=== PATIENT | female | born 1980 | race Caucasian/White ===

== ENCOUNTER 2024-10-23 08:19 | Outpatient (AMB) | payer OTHER, SELFPAY ==
--- NOTE | 2024-10-23 08:22 | AM.OFFWIN_ITS ---
Intake Vital Signs 10/23/24 08:24 Height 5 ft 4 in Weight 161 lb BMI 27.6 BP 116/82 Blood Pressure Location Lt brachial Position Sitting Respiration 12 Pulse 60 Pulse Source Pulse Oximeter Temp 98.2 F Temp Source Oral Pulse Oximetry (%) 99 Oxygen Delivery Method Room Air Intake Visit Reasons: congestion in nose/swollen knee left Intake Note: Congestion in nose for two months. Swollen knee for about a week, pins in needles left arm. Has been doing more strenous activities the past 2 weeks. Patient Tobacco Use Status: Former Tobacco user Allergies No Known Allergies Allergy (Verified 10/23/24 08:33) Medication List - Last Reconciled 10/23/24 by Gloria Enamorado, PANEL CUTTER- ashwagandha root extract mg PO cholecalciferol (vitamin D3) 250 mcg PO DAILY chromium picolinate 200 mcg PO DAILY metformin 250 mg (1/2 x 500 mg) PO BID 90 days multivitamin 1 tab PO DAILY omega 2-azn-vlg-fish oil 1,200 (144-216) mg (Fish Oil) caps PO Do you need a note to return to daycare/school/sports/work: No HPI HPI Comments History of Present Illness Details History of Present Illness - The patient is a 44-year-old female pr esenting with chronic nasal congestion persisting for the last two months following a cold in mid-August. Using Afrin, radha pot and saline to help. Denies fever, chills, sinus pain. Does not feel like a sinus infection. Denies cough. - Swelling in Left knee, reported over t he past week, with a history of hearing a snapping sound in the left knee while descending stairs prior to the onset of swelling. The patient has been active in weight lifting for the last three months & runs regularly. Stopped running and doing lower body to allow the left knee to improve along w/ ice,nsaids, compression and elevation w/o relief. - Left arm paresthesia has been experien cami, presenting as pins and needles following upper body exercises, involving muscles from the elbow down to the fingers. Denies loss of function. Exam awake alert NAD PERRLA TM intact, congested bilat Nares clear, turbinates pale and edematous R>L, no sinus tenderness, + congestion No PND DESAI x 4, left upper arm and lower leg neurovasc intact L knee pain over anterior aspect and medial aspect w/ palpation, + crepitus, no erythema or warmth. Very mild prepatellar swelling. Normal WB. Normal strength. Left arm: FROM. Normal strengh. reports replicated sensation into lower arm w/ palpation over medial and lateral epicondyle & into upper arm w/ palpation over deltoid bursa. No erythema, warmth. Trace edema LLE, + varicose veins Discussion Notes During the discussion, I reviewed with the patient that chronic nasal congestion appears secondary to prolonged use of Afrin, which possibly caused a rebound effect. I advised the patient to discontinue Afrin and introduced her to Flonase (a nasal steroid) and ipratropium (a nasal drying agent) for managing congestion, noting the mechanics of how these would assist in reducing inflammation and encouraging drainage. We explored the options for her L knee swelling. I suggested obtaining an X-ray of the left knee for further evaluation. For left arm paresthesia, likely arising from muscle overuse or impingement, I recommended rest and avoiding exacerbation activities. Explained potential benefits of physical therapy or manipulative medicine as alternatives if symptoms warrant. Scheduled an x-ray at a local office with quicker results and discussed possible follow-up with orthopedic consultation depending on x-ray results. Could also consider treatment of varicose veins but she declines @ this time. No immediate indications for emergency follow-up were observed, and patient consented to proposed diagnostic approach and management plan. Assessment and Plan 1. Chronic Nasal Congestion: I advised d iscontinuing Afrin and starting Flonase and ipratropium to address the chronic nasal congestion attributed to a possible rebound effect from prolonged Afrin use. 2. L Knee Swelling & pain: The plan invo lved obtaining an X-ray to evaluate the knee status, considering potential fluid presence from recent activity. I discussed ongoing application of rest and monitoring. 3. Left Arm Paresthesia: The recommendat ion involved avoiding aggravating activities, with advice on considering physical therapy if symptoms persist. Patient Instructions - Discontinue using Afrin nasal spray. - Begin using Flonase and ipratropium as per prescription instructions for nasal congestion. - Apply ice, use compression, elevate th e affected knee, and limit activities that exacerbate knee swelling. - Avoid exercise activities that involve extensive arm movements or exacerbate the pins and needles sensation. - Arrange for an X-ray of the left knee; follow up on results via patient portal. - Contact the office if symptoms worsen or new symptoms arise. Consent I discussed the plan to discontinue Afrin and use Flonase and ipratropium, explaining the benefits in reducing inflammation and congestion. Discussed potential X-rays for knee assessment emphasizing the benefits in ruling out nikhil r pathology. The patient understood the importance of avoiding exercises aggravating her arm symptoms and consented to rest as a therapeutic measure. Answered patient concerns and questions, and she consented to the proposed medical management and evaluation approach. Patient was informed and verbally consented to the use of an ambient scribe for clinic note documentation during this visit. Total time spent caring for the patient today was 30 minutes. This includes time spent before the visit reviewing the chart, time spent during the visit, and time spent after the visit on documentation, reviewing laboratory results, diagnostic imaging, medications, performing a medically necessary evaluation, counseling on diagnoses, care coordination, ordering appropriate tests, ordering appropriate medications, review of tests performed by other providers, reporting test results with the patient, communication with other healthcare providers. [facility] Medical History (Updated 10/23/24 @ 08:53 by Gloria Enamorado [facility]) Encounter for removal of skin lesion Family History (System 10/10/24 @ 11:28 by Karuna Pack) Mother HTN (hypertension) Hypercholesteremia Father HTN (hypertension) Diabetes Maternal Grandmother HTN (hypertension) Stomach cancer Colon cancer Paternal Aunt Diabetes Paternal Grandfather Diabetes Paternal Grandfather Stomach cancer Paternal Grandmother Uterine cancer Social History (System 10/10/24 @ 11:28 by Karuna Pack) Housing: House Patient Tobacco Use Status: Former Tobacco user Tobacco use type: Cigarette Years Smoked: 10 years e-Cigarette/Vaping Use: Never Used service: No Current occupational status: employed Current occupation: [employer] Current occupational exposures/hazards: No Cognitive needs: No Hearing needs: No Vision needs: No Assessment & Plan Assessment & Plan (1) Rhinitis medicamentosa: Code(s): J31.0 - Chronic rhinitis; T48.5X5A - Adverse effect of other uzeb-nxwcip-lwed drugs, initial encounter (2) Pain and swelling of left knee: Code(s): M25.562 - Pain in left knee; M25.462 - Effusion, left knee (3) Arm paresthesia, left: Code(s): R20.2 - Paresthesia of skin (4) Varicose veins of both legs with edema: Code(s): I83.893 - Varicose veins of bilateral lower extremities with other complications Plan . Orders: Orders XR knee LT 4V Today M25.462 - Effusion, left knee, M25.562 - Pain in left knee Medications: New fluticasone propionate 50 mcg/actuation (Flonase Allergy Relief) administer into each nostril 1 spray intranasal BID 16 grams 0RF ipratropium bromide administer into each nostril 2 sprays intranasal BID 30 mL 0RF Coding Level of Care Code Est Pt Level 4 (36561) Diagnoses Rhinitis medicamentosa J31.0; T48.5X5A Pain and swelling of left knee M25.562; M25.462 Arm paresthesia, left R20.2 Varicose veins of both legs with edema I83.893
[2024-10-23 08:24] VITALS: BP 116/82; PULSE 60; RESP 12; TEMP 36.8; O2SAT 99; BMI 27.6
== END 2024-10-23 08:47 | disposition home or self-care (01) ==
PROVIDERS: PCP Family Medicine; Visit Provider Nurse Practitioner Family
DX: J31.0 Chronic rhinitis (principal); T48.5X5A Adverse effect of other anti-common-cold drugs, initial encounter; M25.562 Pain in left knee; M25.462 Effusion, left knee; R20.2 Paresthesia of skin; I83.893 Varicose veins of bilateral lower extremities with other complications

== ENCOUNTER 2024-11-01 09:09 | Outpatient (REF) | payer OTHER, SELFPAY ==
--- NOTE | ~2024-11-01 | XR_ITS ---
EXAMINATION: XR KNEE 4 OR MORE VIEWS LEFT HISTORY: M25.562 - Pain in left knee COMPARISON: There are no prior studies available for comparison. FINDINGS: Four views of the left knee are submitted. Osseous mineralization is normal. There is no fracture or dislocation. There is mild to moderate osteoarthritis of all 3 compartments, with joint space narrowing and osteophyte formation. There is a small joint effusion. XR/XR knee LT 4V IMPRESSION: Small joint effusion. Mild to moderate tricompartmental osteoarthritis. Electronically signed by: Ash Manzo MD 11/03/2024 07:09 AM EDT
== END 2024-11-01 09:10 | disposition home or self-care (01) ==
LOC: HO.HMGCX 09:09
PROVIDERS: PCP Family Medicine; Visit Provider Nurse Practitioner Family
DX: M25.562 Pain in left knee (principal); M25.462 Effusion, left knee
CPT/HCPCS: 73564

== ENCOUNTER → 2024-11-01 09:13 | Outpatient (BNV) | payer OTHER, SELFPAY | PROVIDERS: PCP Family Medicine; Visit Provider Radiology Diagnostic Radiology | DX: M25.562 Pain in left knee (principal) | CPT/HCPCS: 73564 ==

== ENCOUNTER 2024-11-11 14:49 | Outpatient (AMB) | payer OTHER, SELFPAY ==
--- NOTE | 2024-11-11 15:00 | A.OFFPC_ITS ---
Vital Signs 11/11/24 15:04 Height 5 ft 4 in Weight 179 lb 6 oz BMI 30.8 BP 110/60 Blood Pressure Location Rt brachial Position Sitting Respiration 12 Pulse 57 Pulse Source Pulse Oximeter Temp 98.9 F Temp Source Oral Pulse Oximetry (%) 99 Oxygen Delivery Method Room Air Intake Visit Reasons: medication reactions Intake Note: patient is scheduled for medication review for metformin Spike Machine Feeder Required: No Allergies No Known Allergies Allergy (Verified 11/11/24 15:02) Tobacco use date assessed: 01/08/24 Dental Screening Dental Screen Date: 11/16/23 HPI medication reactions HPI Details 44 y/o female presents today to talk abo ut her metformin. She is on metformin 250mg b.i.d. Hx of prediabetes. A1c today 11/11/24 is 6.7%. She notes she had been on mounjaro for 6 months which she notes had worked well. [facility] Medical History (Updated 11/11/24 @ 15:19 by Merrick Tsai) Encounter for removal of skin lesion Family History (System 10/10/24 @ 11:28 by Karuna Pack) Mother HTN (hypertension) Hypercholesteremia Father HTN (hypertension) Diabetes Maternal Grandmother HTN (hypertension) Stomach cancer Colon cancer Paternal Aunt Diabetes Paternal Grandfather Diabetes Paternal Grandfather Stomach cancer Paternal Grandmother Uterine cancer Social History (System 10/10/24 @ 11:28 by Karuna Pack) Housing: House Patient Tobacco Use Status: Former Tobacco user Tobacco use type: Cigarette Years Smoked: 10 years e-Cigarette/Vaping Use: Never Used service: No Current occupational status: employed Current occupation: [employer] Current occupational exposures/hazards: No Cognitive needs: No Hearing needs: No Vision needs: No Questionnaire PHQ-9 Over the last 2 weeks, how often have you been bothered by any of the following problems? 1. Little interest or pleasure in doing things: several days 2. Feeling down, depressed, or hopeless: several days 3. Trouble falling or staying asleep, or sleeping too much: not at all 4. Feeling tired or having little energy: several days 5. Poor appetite or overeating: several days 6. Feeling bad about yourself - or that you are a failure or have let yourself or your family down: not at all 7. Trouble concentrating on things, such as reading the newspaper or watching television: several days 8. Moving or speaking so slowly that other people could have noticed. Or the opposite - being so fidgety or restless that you have been moving around a lot more than usual: not at all 9. Thoughts that you would be better off or of hurting yourself in some way: not at all Total score: 5 Source: Developed by Drs. Ash Crowell, Sherin Keller, Dewayne Palacio and colleagues, with an educational di from [employer]. Thrive Questionnaire Date Thrive assessed: 11/16/23 I am a: Patient What is your living situation today?: I have a steady place to live Within the past 12 months, did the food you bought not last and you didn't have the money to get more?: Never true Within the past 12 months, did you worry whether your food would run out before you got money to buy more?: Never true Do you have trouble paying for medicines?: No Do you have trouble getting transportation to medical appointments?: Yes Do you have trouble paying your heating and electricity bill?: No Do you have trouble taking care of your child, family member or friend?: No Do you have trouble with day-to-day activities such as bathing, preparing meals, shopping, managing finances, etc.?: No Are you currently unemployed and looking for a job?: Yes Are you interested in more education?: No Please select the resources that you would like help with: None Currently or been in a relationship where the following occur: No concerns reported THRIVE Score: 1 AUDIT C Alcohol Use Questionnaire (AUDIT-C) 1. How often do you have a drink containing alcohol?: Monthly or less 2. How many drinks containing alcohol do you have on a typical day when you are drinking?: 1 or 2 3. How often do you have six or more drinks on one occasion?: Never Total Score: 1 JACOB-7 AMB Questionnaire JACOB-7 Date JACOB - 7 assessed: 11/16/23 Feeling nervous, anxious, or on edge: 2 = More than half the days Not being able to stop or control worryin = Several days Worrying too much about different things: 1 = Several days Trouble relaxin = Several days Being so restless that it is hard to sit still: 0 = Not at all Becoming easily annoyed or irritable: 3 = Nearly every day Feeling afraid as if something awful might happen: 0 = Not at all Total JACOB-7 score (0-4 normal; 5-9 mild; 10-14 moderate; 15-21 severe): 8 Source: Developed by Drs. Ash Crowell, Sherin Keller, Dewayne Palacio and colleagues, with an educational di from [employer]. Review of Systems Const Denies chills, Denies fatigue, Denies fever(s), Denies headache(s) and Denies weakness ENT Denies dizziness and Denies headache(s) Card Denies dyspnea Resp Denies cough, Denies dyspnea, Denies wheezing and Denies other (shortness of breath) Musc Denies numbness and Denies tingling Neuro Denies dizziness, Denies headache(s), Denies numbness, Denies tingling and Denies weakness Psych Denies anxiety and Denies depression Endo Denies fatigue Aller/Immun Denies wheezing Physical exam (Primary Care) Vital Signs: Last Vital Signs Temp 98.9 F 11/11/24 15:04 Pulse 57 11/11/24 15:04 Resp 12 11/11/24 15:04 BP 110/60 11/11/24 15:04 Pulse Ox 99 11/11/24 15:04 Oxygen Delivery Method Room Air 11/11/24 15:04 BMI result Body Mass Index 30.8 Tobacco/Smoking Status: Tobacco use Status Tobacco use date assessed 01/08/24 11/11/24 15:07 Patient Tobacco Use Status Former Tobacco user 11/11/24 15:07 Tobacco use type Cigarette 11/11/24 15:07 e-Cigarette/Vaping Use Never Used 11/11/24 15:07 PHQ-9: PHQ-9 Score PHQ-9: Total score 5 11/11/24 15:09 Thrive Assessment: Date of Thrive Assessment Date Thrive assessed 11/16/23 11/11/24 15:07 Currently or been in a relationship where the following occur: No concerns reported Const General: well developed; No acute distress Nutritional Appearance: well nourished Orientation/consciousness: patient oriented x3 HENMT Head: Yes normocephalic and Yes atraumatic Eyes General: appearance normal, both eyes and all related structures Pupils: Equal, round and reactive pupils present EOM: EOMs intact bilaterally Resp Effort & Inspection: normal respiratory effort Neuro General: patient oriented x3 and gait normal Cranial nerves: Yes Equal, round and reactive pupils present Psych Affect: normal affect Coding Level of Care Code Est Pt Level 4 (39924) Diagnoses Diabetes E11.9 Heart murmur R01.1 Tricompartment osteoarthritis of left knee M17.12 Assessment & Plan Assessment & Plan (1) Diabetes: Code(s): E11.9 - Type 2 diabetes mellitus without complications Category: Medical Plan: A1c?has?climbed?to?6.7%?despite?using?metformin. Diabetes?range Will?send?a?script?for?Susana. Recommending?a?goal?of?less?than?6.5% She?has?an?appointment?for?physical?in?January?him?to?follow- up?to?see?how?she?is?doing?with?that (2) Heart murmur: Code(s): R01.1 - Cardiac murmur, unspecified Category: Medical Plan: Echocardiogram?shows?some?mitral?regurgitation?and?also?mild?left?atrial?enlarge ment. Keep?blood?pressure?is?well?controlled. Will?get 2 yr f/u ?echocardiogram (3) Tricompartment osteoarthritis of left knee: Code(s): M17.12 - Unilateral primary osteoarthritis, left knee Category: Medical Plan: Left?knee?pain?and?x-ray?shows?osteoarthritis?with?mild?effusion Patient?has?an?appointment?with?Ortho Orders: Orders AMB Hemoglobin A1c Today R73.03 - Prediabetes
[2024-11-11 15:04] VITALS: BP 110/60; PULSE 57; RESP 12; TEMP 37.2; O2SAT 99; BMI 30.8
== END 2024-11-11 15:31 | disposition home or self-care (01) ==
LOC: HO.HMCFM 14:50
PROVIDERS: PCP Family Medicine; Visit Provider Family Medicine
DX: E11.9 Type 2 diabetes mellitus without complications (principal); R01.1 Cardiac murmur, unspecified; M17.12 Unilateral primary osteoarthritis, left knee

== ENCOUNTER → 2024-11-11 14:49 | Outpatient (BNVA) | payer OTHER, SELFPAY | PROVIDERS: PCP Family Medicine; Visit Provider Family Medicine | DX: E11.9 Type 2 diabetes mellitus without complications (principal); R01.1 Cardiac murmur, unspecified; M17.12 Unilateral primary osteoarthritis, left knee | CPT/HCPCS: 83036; 96127 ==

== ENCOUNTER 2024-12-18 08:55 | Outpatient (AMB) | payer OTHER, SELFPAY ==
--- NOTE | 2024-12-18 08:56 | A.OFFVIS_ITS ---
Vital Signs 12/18/24 08:57 Height 5 ft 4 in Weight 167 lb 8.821 oz BMI 28.8 BP 132/79 Blood Pressure Location Lt brachial Position Sitting Pulse 67 Intake Visit Reasons: colo screening Intake Note: Chiara presents in the office as a colonoscopy screening. CC: She states that she is just here today for a screening - she has never had one ! Workers Compensation Administrator Required: No Allergies No Known Allergies Allergy (Verified 12/18/24 09:00) HPI HPI colo screening: Details: 44-year-old female here for preprocedural meeting to discuss a screening colonoscopy. She is referred by Ariel Meier. PMX Diabetes High cholesterol Heart murmur Abnormal uterine bleeding Varicose veins Osteoarthritis of the knees * SURGICAL HISTORY PItuitary surgery * ALLERGIES: NKDA * MEDITECH LABS: none todd 03/2024 TODAY'S VISIT This is her first colonoscopy. She denies any bowel or upper GI problems. She is naive to anesthesia and sedation. No respiratory or cardiac problems. No ID problems. Her maternal gradmother had CRC in her 90's and her mother had polyps. [facility] Medical History Encounter for removal of skin lesion Family History Mother HTN (hypertension) Hypercholesteremia Father HTN (hypertension) Diabetes Maternal Grandmother HTN (hypertension) Stomach cancer Colon cancer Paternal Aunt Diabetes Paternal Grandfather Diabetes Paternal Grandfather Stomach cancer Paternal Grandmother Uterine cancer Social History Housing: House Patient Tobacco Use Status: Former Tobacco user Tobacco use type: Cigarette Years Smoked: 10 years e-Cigarette/Vaping Use: Never Used service: No Current occupational status: employed Current occupation: [employer] Current occupational exposures/hazards: No Cognitive needs: No Hearing needs: No Vision needs: No Review of Systems Const Denies fatigue, Denies fever(s), Denies night sweats, Denies poor appetite and Denies weight loss Eyes Details: glasses Reports requires corrective lenses ENT Reports Normal hearing present, Denies dental pain, Denies dysphagia, Denies hearing loss, Denies mouth pain, Denies odynophagia, Denies throat swelling, Denies tongue swelling and Reports other (Dentition adequate) Card Reports no additional complaints Resp Reports no additional complaints GI Details: Denies abdominal pain, Denies melena, Denies bloating, Denies hematochezia, Denies constipation, Denies GI cramping, Denies dysphagia, Denies excessive flatus, Denies early satiety, Denies heartburn, Denies diarrhea, Denies nausea, Denies odynophagia, Denies vomiting and Denies hematemesis Skin/Breast Denies pruritus, Denies lesions, Denies rash and Denies jaundice Neuro Reports Normal hearing present and Denies Abnormal speech present Endo Denies fatigue Aller/Immun Denies throat swelling and Denies tongue swelling Physical Exam Vital Signs: Last Vital Signs Pulse 67 12/18/24 08:57 BP 132/79 12/18/24 08:57 BMI result Body Mass Index 28.8 Const General: cooperative, no acute distress, well developed and well groomed Nutritional Appearance: average body habitus and well nourished Orientation/consciousness: oriented to person, oriented to place and oriented to time Limitations: No language barrier HEENT Head: Yes normocephalic and Yes atraumatic Eyes General: appearance normal, both eyes and all related structures Pupils: Equal, round and reactive pupils present Neck Neck: Yes normal visual inspection and Yes no lymphadenopathy Thyroid: Thyroid normal Resp Effort & Inspection: normal respiratory effort and able to speak in complete sentences Auscultation: clear to auscultation bilaterally Cardio Rate: regular rate Rhythm: regular rhythm Heart sounds: Normal, physiologic split S2 sound present Peripheral pulses: radial pulses present and posterior tibial pulses present GI Inspection: No distended and No Abdominal panniculus present Palpation (GI): Soft to palpation, nontender, no guarding, not rigid and No hepatosplenomegaly present Percussion: Yes normal to percussion Auscultation: normal bowel sounds Rectal Exam - Female: deferred Skin General skin exam: no rashes or lesions noted, turgor normal, skin not dry, no jaundice, No spider nevi and no striae Rashes: no rashes Nails: normal Neuro General: oriented to person, oriented to place and oriented to time Cranial nerves: Yes Equal, round and reactive pupils present and Yes Normal hearing present Speech: No Abnormal speech present Extrem General: Yes normal to inspection, No clubbing, No cyanosis and No edema Psych Appearance: grossly normal and well kempt Mental Status: mental status grossly normal Speech and movement: Normal speech and movement present Affect: normal affect Attitude: cooperative Thought process: Normal thought process present and not confabulating Thought content: Normal thought content present Insight: Good insight present (Psych) Judgement: Good judgement present (Psych) Assessment & Plan Assessment & Plan (1) Pre-op examination: Code(s): Z01.818 - Encounter for other preprocedural examination Category: Medical Plan This is her first colonoscopy. She denies any bowel or upper GI problems. She is naive to anesthesia and sedation. No respiratory or cardiac problems. No ID problems. Her maternal gradmother had CRC in her 90's and her mother had polyps. Orders: Orders Complete Blood Count Auto Diff Today Z01.818 - Encounter for other preprocedural examination Colonoscopy - GI Use Only Today Z01.818 - Encounter for other preprocedural examination Comprehensive Met. Panel Today Z01.818 - Encounter for other preprocedural examination Medications: New bisacodyl (Dulcolax (bisacodyl)) 10 mg (2 x 5 mg) PO BEDTIME 2 days 4 tabs 0RF peg 3350-electrolytes 236-22.74-6.74 -5.86 gram (Golytely) until fecal effluent is clear; do not exceed a total volume of 2,000 mL 240 mL PO Q10M 1 day 4,000 mL 0RF Z12.11 - Encounter for screening for malignant neoplasm of colon Coding Level of Care Code New Pt Level 3 (80180) Diagnoses Pre-op examination Z01.818
[2024-12-18 08:57] VITALS: BP 132/79; PULSE 67; BMI 28.8
== END 2024-12-18 09:30 | disposition home or self-care (01) ==
LOC: HO.HGI 08:55
PROVIDERS: PCP Family Medicine; Visit Provider Nurse Practitioner
DX: Z01.818 Encounter for other preprocedural examination (principal); Z12.11 Encounter for screening for malignant neoplasm of colon
CPT/HCPCS: 99202

== ENCOUNTER → 2024-12-18 08:55 | Outpatient (BNVA) | payer OTHER, SELFPAY | PROVIDERS: PCP Family Medicine; Visit Provider Nurse Practitioner ==

== ENCOUNTER 2024-12-25 09:26 | Outpatient (REF) | payer OTHER, SELFPAY ==
--- NOTE | ~2024-12-25 | XR_ITS ---
EXAMINATION: XR KNEE, LEFT CLINICAL INFORMATION: M25.569 - Pain in unspecified knee COMPARISON: Left knee radiographs 11/01/2024. TECHNIQUE: AP view bilateral knees standing, patellofemoral view left knee. FINDINGS: RIGHT KNEE: No fracture or bone lesion. Normal alignment. Mild to moderate medial and mild lateral compartment osteoarthritis. Mild spurring of the tibial spines. Normal soft tissues. LEFT KNEE: No fracture, dislocation, or suspicious bone lesion. Mild to moderate medial compartment osteoarthrosis with marginal osteophytic spurs and mild joint space narrowing. Moderate changes in the patellofemoral compartment. Mild changes in the lateral compartment. Mild spurring of the tibial spines. Normal soft tissues. XR/XR knee LT 2V IMPRESSION: 1. Tricompartmental osteoarthrosis of the left knee, moderate in the patellofemoral compartment, and mild to moderate in the medial compartment. Electronically signed by: Chucho Tierney MD 12/25/2024 10:15 AM EDT
[2024-12-25 10:37] LABS: MANUAL DIFF FLAG NO
[2024-12-25 11:21] LABS: Basophils Absolute Auto 0.1 X10*3/uL (0.0-0.2); Basophils Percent Auto 0.8 % (0-2); Eosinophils Absolute Auto 0.2 X10*3/uL (0.0-0.4); Eosinophils Percent Auto 1.7 % (0-4); Hematocrit 43.3 % (37.0-47.0); Hemoglobin 14.9 g/dl (12.0-16.0); Imm Gran Abs Auto 0.03 X10*3/uL (0.00-0.03); Imm Gran Pct Auto 0.3 % (0.0-0.4); Lymphocytes Absolute Auto 3.1 X10*3/uL (1.2-4.9); Lymphocytes Percent Auto 35.1 % (20-40); Mean Corpuscular HGB Conc 34.4 g/dl (31.0-35.0); Mean Corpuscular Hemoglobin 29.3 pg (27.0-33.0); Mean Corpuscular Volume 85.1 fL (80.0-98.0); Mean Platelet Volume 9.8 fL (9.4-12.3); Monocytes Absolute Auto 0.7 X10*3/uL (0.1-1.2); Monocytes Percent Auto 7.3 % (2-11); Neutrophils Absolute Auto 4.9 x10*3/uL (2.0-8.3); Neutrophils Percent Auto 54.8 % (45-73); Platelet Count 289 X10*3/uL (160-400); Red Blood Count 5.09 X10*6/uL (4.20-5.50); Red Cell Distribution Width 13.1 % (11.0-16.0); White Blood Count 8.9 X10*3/uL (4.8-10.8)
[2024-12-25 11:35] LABS: HCG Quantitative < 2 mIU/mL
[2024-12-25 12:13] LABS: Appearance Urine Cloudy; Color Urine Yellow; Glucose Urine UA Negative (Negative); Leukocyte Esterase Urine Trace (Negative); Nitrite Urine Negative (Negative); Specific Gravity - Urine <= 1.005 (1.005-1.025); UMIC TRIGGER UA YES; Urine Blood Negative (Negative); Urine Ketones Negative (Negative); Urine Protein Negative (Neg-Trace)
[2024-12-25 12:19] LABS: Bacteria Urine 2+ (None Seen); Hyaline Casts Urine 0-2 /LPF (0-2); RBC Urine 0-2 /HPF (0-2); WBC Urine 0-5 /HPF (0-5)
[2024-12-25 12:21] LABS: Alanine Aminotransferase 19 U/L (0-31); Albumin Level 4.8 g/dL (3.5-5.0); Alkaline Phosphatase 58 U/L (39-117); Anion Gap 10 (12-20); Aspartate Amino Transferase 22 U/L (5-31); Bilirubin Total 0.4 mg/dL (0.0-1.0); Blood Urea Nitrogen 9 mg/dL (9-16); Calcium 9.8 mg/dL (8.4-10.2); Carbon Dioxide 28 mmol/L (22-29); Chloride 108 mmol/L (96-108); Estimated Glomerular Filt Rate > 60; Glucose Random 82 mg/dL (60-115); Potassium 4.3 mmol/L (3.3-5.1); Sodium 142 mmol/L (135-145); Total Protein 7.5 g/dL (6.5-8.0)
== END 2024-12-25 09:27 | disposition home or self-care (01) ==
LOC: HO.HOSX 09:26
PROVIDERS: Nurse Practitioner; Obstetrics & Gynecology; PCP Family Medicine; Visit Provider Physician Assistant
DX: M17.12 Unilateral primary osteoarthritis, left knee (principal); Z01.818 Encounter for other preprocedural examination; O02.1 Missed abortion
CPT/HCPCS: 36415; 73560; 80053; 81001; 81003; 84702; 85025

== ENCOUNTER 2024-12-25 09:48 | Outpatient (AMB) | payer OTHER, SELFPAY ==
[2024-12-25 09:51] VITALS: BMI 28.7
--- NOTE | 2024-12-25 09:51 | A.OFFVIS_ITS ---
Vital Signs 12/25/24 09:51 Height 5 ft 4 in Weight 167 lb BMI 28.7 Intake Visit Reasons: [employer]- left knee OA Intake Note: Chiara is a 44 year old female who presents today for a new patient visit with complaints of left knee pain. Patient reports that she has had ongoing pain for quite some time now but worsened in October of this year. In October she was lifting weights and after working out she was going up the stairs and she felt a pop - since feeling this pop she has had increased pain. She utilized ice, elevation and NSAID. She has not had any physical therapy or injections - but she has been dong exercises at home. Allergies No Known Allergies Allergy (Verified 12/25/24 10:04) HPI HPI [employer]- left knee OA: Details: Chiara is a 44 year old female who presents today for a new patient visit with complaints of left knee pain. Patient reports that she has had ongoing pain for quite some time now but worsened in October of this year. In October she was lifting weights and after working out she was going up the stairs and she felt a pop - since feeling this pop she has had increased pain. She utilized ice, elevation and NSAIDs. She has not had any physical therapy or injections - but she has been dong exercises at home. She enjoys running and think she probably irritated her left knee after engaging in a new workout regimen including squats and exercises to increase lower extremity strength. [facility] Medical History Encounter for removal of skin lesion Family History Mother HTN (hypertension) Hypercholesteremia Father HTN (hypertension) Diabetes Maternal Grandmother HTN (hypertension) Stomach cancer Colon cancer Paternal Aunt Diabetes Paternal Grandfather Diabetes Paternal Grandfather Stomach cancer Paternal Grandmother Uterine cancer Social History Housing: House Patient Tobacco Use Status: Former Tobacco user Tobacco use type: Cigarette Years Smoked: 10 years e-Cigarette/Vaping Use: Never Used service: No Current occupational status: employed Current occupation: [employer] Current occupational exposures/hazards: No Cognitive needs: No Hearing needs: No Vision needs: No Physical Exam Vital Signs: BMI result Body Mass Index 28.7 Extrem Other: Full range of motion left knee. Positive patellar tilt him significant retropatellar discomfort and crepitus with patellar grind. She has a trace effusion as well. She walks without antalgia. Her alignment is normal. Results Reviewed Results Reviewed: I personally reviewed relevant radiographs. [id number] tibiofemoral arthritis. Severe patellofemoral arthritis Assessment & Plan Assessment & Plan (1) Patellofemoral arthritis of left knee: Code(s): M17.12 - Unilateral primary osteoarthritis, left knee Category: Medical Plan: This is a 44-year-old woman with patellofemoral osteoarthritis. It is significant on radiographs. She likes to run in his very active. I had a long discussion with her regarding the mechanics of the patellofemoral joint. I recommend a referral to physical therapy. She may continue to use NSAIDs and should continue to workout but I would avoid exacerbating activities. If the swelling resumes over return for potential aspiration/injections. Orders: Orders PT Evaluation and Treatment 12/25/24 Nahun Prieto MD M17.12 - Unilateral prim suzi osteoarthritis, left knee XR knee LT 2V 12/25/24 Jeanette Lee PA-C M25.569 - Pain in unspecified knee Coding Level of Care Code New Pt Level 3 (69799) Diagnoses Patellofemoral arthritis of left knee M17.12
== END 2024-12-25 10:30 | disposition home or self-care (01) ==
LOC: HO.HOS 09:48
PROVIDERS: PCP Family Medicine; Visit Provider Physician Assistant
DX: M17.12 Unilateral primary osteoarthritis, left knee (principal)
CPT/HCPCS: 99203

== ENCOUNTER → 2024-12-25 09:50 | Outpatient (BNV) | payer OTHER, SELFPAY | PROVIDERS: PCP Family Medicine; Visit Provider Radiology Diagnostic Radiology | DX: M17.12 Unilateral primary osteoarthritis, left knee (principal) | CPT/HCPCS: 73560 ==

== ENCOUNTER 2025-01-19 13:02 | Outpatient (REF) | payer OTHER, SELFPAY ==
--- NOTE | ~2025-01-19 | US_ITS ---
EXAMINATION: US PELVIS CLINICAL INFORMATION: Uterine fibroid COMPARISON: April 21, 2024. TECHNIQUE: Ultrasound of the pelvis is performed using both transabdominal and transvaginal transducers along with Doppler. Transvaginal imaging is performed due to inadequate visualization transabdominally. FINDINGS: Uterus: The uterus is anteversion flexion and measures 9 x 7 x 6 cm. Volume: 196 cc. The double wall endometrial thickness is not identified. There is an intrauterine contraceptive device noted fully evaluated... There is a 4.2 x 3.8 x 4.0 cm heterogeneous soft tissue lesion centered in the fundus. There is a 4.8 x 3.7 x 4.9 cm heterogeneous soft tissue lesion likely subserosal right lateral body/cervix junction. Adnexa: Both ovaries are visualized. There is normal color flow to the adnexa. There is no ovarian torsion. There is no pelvic ascites or fluid collection. . Right ovary measures 3 x 1 x 2 cm. Volume: 4 cc. Left ovary measures 4 x 2 x 3 cm. Volume: 19 cc. 1.9 cm dominant follicle. US/US pelvic and transvaginal IMPRESSION: 2 uterine fibroids. No ovarian torsion. Unable to evaluate the intrauterine contraceptive device. Electronically signed by: Jorge Betancourt MD 01/19/2025 01:55 PM EDT
== END 2025-01-19 13:03 | disposition home or self-care (01) ==
LOC: HO.US 13:02
PROVIDERS: PCP Family Medicine; Visit Provider Obstetrics & Gynecology
DX: D25.9 Leiomyoma of uterus, unspecified (principal)
CPT/HCPCS: 76830; 76856

== ENCOUNTER → 2025-01-19 13:04 | Outpatient (BNV) | payer OTHER, SELFPAY | PROVIDERS: PCP Family Medicine; Visit Provider Radiology Diagnostic Radiology | DX: D25.9 Leiomyoma of uterus, unspecified (principal) | CPT/HCPCS: 76830; 76856 ==

== ENCOUNTER 2025-02-09 08:35 | Outpatient (AMB) | payer OTHER, SELFPAY ==
--- NOTE | 2025-02-09 08:40 | A.OFFVIS_ITS ---
Vital Signs 02/09/25 08:41 Height 5 ft 4 in Weight 167 lb BMI 28.7 Intake Visit Reasons: Ultrasound follow up Allergies No Known Allergies Allergy (Verified 12/25/24 10:04) HPI Comments Details: Presenting for follow-up ultrasound regarding uterine myoma seen on previous pelvic ultrasound. The patient is doing well with no complaints no abnormal uterine bleeding, minimal pelvic pressure or pain. The patient is complaining of hot flash with vaginal dryness. On Mirena IUD Pelvic ultrasound done recently showed the following: Uterus: The uterus is anteversion flexion and measures 9 x 7 x 6 cm. Volume: 196 cc. The double wall endometrial thickness is not identified. There is an intrauterine contraceptive device noted fully evaluated... There is a 4.2 x 3.8 x 4.0 cm heterogeneous soft tissue lesion centered in the fundus. There is a 4.8 x 3.7 x 4.9 cm heterogeneous soft tissue lesion likely subserosal right lateral body/cervix junction. Adnexa: Both ovaries are visualized. There is normal color flow to the adnexa. There is no ovarian torsion. There is no pelvic ascites or fluid collection. . Right ovary measures 3 x 1 x 2 cm. Volume: 4 cc. Left ovary measures 4 x 2 x 3 cm. Volume: 19 cc. 1.9 cm dominant follicle. 04/21 pelvic ultrasound showed the following: The uterus is smooth in contour and has normal myometrial echogenicity. Right subserosal 4.6 cm fibroid. Right uterine body intramural 3.5 cm fibroid. [facility] Medical History Encounter for removal of skin lesion Family History Mother HTN (hypertension) Hypercholesteremia Father HTN (hypertension) Diabetes Maternal Grandmother HTN (hypertension) Stomach cancer Colon cancer Paternal Aunt Diabetes Paternal Grandfather Diabetes Paternal Grandfather Stomach cancer Paternal Grandmother Uterine cancer Social History Housing: House Patient Tobacco Use Status: Former Tobacco user Tobacco use type: Cigarette Years Smoked: 10 years e-Cigarette/Vaping Use: Never Used service: No Current occupational status: employed Current occupation: [employer] Current occupational exposures/hazards: No Cognitive needs: No Hearing needs: No Vision needs: No Review of Systems Const All systems reviewed & are unremarkable except as noted in HPI and below Reports as per HPI and Reports no additional complaints GI Reports no additional complaints Reports no additional complaints Physical Exam Vital Signs: BMI result Body Mass Index 28.7 Assessment & Plan Assessment & Plan (1) Uterine myoma: Comment: Mirena IUD Code(s): D25.9 - Leiomyoma of uterus, unspecified Category: Medical Plan: Discussed with the patient the findings on pelvic ultrasound & the risk of myosarcoma; in addition reviewed with the patient that malignancy and pre malignancy cannot be ruled out without hysterectomy for pathological evaluation ; furthermore, explained to the patient the limitation of pelvic ultrasound and endometrial biopsy in the setting. Discussed with the patient the options of treatment including expectant management versus hysterectomy; the pros and cons, risks benefits of each approach were discussed with the patient including the fact that in cases of myosarcoma, surgical treatment can lead to early diagnosis and positively affect s the prognosis; after further discussion, the patient decided to proceed with expectant management. Will repeat pelvic ultrasound periodically. Instructions given to patient to call in case any of the following occurs: pressure symptoms, abnormal uterine bleeding, pelvic pain; and to schedule a 12 months pelvic ultrasound (order placed) and a follow-up appointment . All questions answered, the patient verbalized understanding and agreed with the plan . Orders: Orders Follicle Stimulating Hormone Today R23.2 - [place] Lutenizing Hormone Today R23.2 - [place] US pelvic and transvaginal 12 Months D25.9 - Leiomyoma of uterus, unspecified Coding Level of Care Code Est Pt Level 3 (05556) Diagnoses Uterine myoma D25.9
[2025-02-09 08:41] VITALS: BMI 28.7
== END 2025-02-09 09:15 | disposition home or self-care (01) ==
LOC: HO.HWS 08:36
PROVIDERS: PCP Family Medicine; Visit Provider Obstetrics & Gynecology
DX: D25.9 Leiomyoma of uterus, unspecified (principal)
CPT/HCPCS: 99213

== ENCOUNTER → 2025-02-09 08:35 | Outpatient (BNVA) | payer OTHER, SELFPAY | PROVIDERS: PCP Family Medicine; Visit Provider Obstetrics & Gynecology | DX: Z00.00 Encounter for general adult medical examination without abnormal findings (principal); Z23 Encounter for immunization; E11.29 Type 2 diabetes mellitus with other diabetic kidney complication; R80.9 Proteinuria, unspecified; R01.1 Cardiac murmur, unspecified; F32.A Depression, unspecified; E55.9 Vitamin D deficiency, unspecified; Z79.85 Long-term (current) use of injectable non-insulin antidiabetic drugs; Z13.30 Encounter for screening examination for mental health and behavioral disorders, unspecified; Z13.31 Encounter for screening for depression | CPT/HCPCS: 83036; 90471; 90715; 96127 ==

== ENCOUNTER 2025-02-09 11:35 | Outpatient (AMB) | payer OTHER, SELFPAY ==
--- NOTE | 2025-02-09 11:52 | MHC.PC.OV ---
Vital Signs 02/09/25 11:57 02/09/25 12:02 Height 5 ft 4 in Weight 168 lb 6 oz BMI 28.9 BP 110/64 Blood Pressure Location Rt brachial Position Sitting Respiration 12 Pulse 56 Pulse Source Pulse Oximeter Temp 97.2 F Temp Source Temporal Artery Scan Pulse Oximetry (%) 97 Oxygen Delivery Method Room Air Intake Visit Reasons: CPE/ Diabetes Intake Note: Chiara presents in the office today for her annual physical. Allergies No Known Allergies Allergy (Verified 02/09/25 11:55) Tobacco use date assessed: 02/09/25 Dental Screening Dental Screen Date: 02/09/25 Did you have a dental visit in the last 12 months?: Yes Did you have a dental problem in the last 6 months where you did not have access to dental care?: No Was dental information given to patient?: Patient has dentist HPI HPI Comments History of Present Illness Details This is a 45-year-old female with a past medical history of type 2 diabetes, osteoarthritis, heart murmur and vitamin-D deficiency presenting for a physical exam. Type 2 diabetes-hemoglobin A1c 5.6% today down from 6.7% 11/11/2024. Taking Mounjaro 2.5 mg weekly. Endorses constipation treated with magnesium at night as needed. Eye exam is up-to-date. She has microalbuminuria on labs from December 2023. She exercises regularly. Nonsmoker. She sees Dr. Benz. She has some depression thought to be related to perimenopause. Vitamin-D deficiency-she takes a supplement. Tdap administered today. Recommended pneumonia vaccine. Mammogram scheduled in February. Colonoscopy pre appointment was done, and she is awaiting scheduling. ROS: Constitutional: No unexplained weight loss, fever, chills or night sweats. Eyes: No vision changes, blurry vision, double vision, eye pain, eye redness, eye discharge. ENT: No hearing loss, sneezing, congestion, runny nose or sore throat. Respiratory: No shortness of breath, cough or sputum production. Cardiovascular: No chest pain, chest pressure or chest discomfort. No palpitations or pedal edema. Gastrointestinal: No anorexia, nausea, vomiting or diarrhea. No abdominal pain or blood in stool. Genitourinary: No dysuria, hematuria, urinary frequency. Neurologic: No headache, dizziness, syncope, unilateral weakness, ataxia, numbness or tingling in the extremities. Musculoskeletal: She is doing physical therapy for osteoarthritis in her left knee. Hematologic/Lymphatics: No bleeding or bruising. No painful lymph nodes. Skin: No rash or itching. Endocrine: No cold or heat intolerance. No polyuria or polydipsia. Psychiatric: See HPI Physical exam: Constitutional: Alert, in no distress. Head: Normocephalic. Eyes: Pupils are equal, round and reactive to light. Extraocular muscles intact. Ear, Nose and Throat: Canals clear. TMs normal. Normal nasal mucosa. No nasal discharge. No oral lesions. Neck: Supple, Full range of motion. No lymphadenopathy. No palpable thyroid masses. Respiratory: Clear to auscultation. Cardiovascular: S1 S2 regular. II/ systolic murmur.. No carotid bruits. Gastrointestinal: Abdomen soft, non-tender, non-distended. Normal bowel sounds. No palpable masses. Neurologic: No focal neurological deficits. Symmetric patellar reflexes. Moves all extremities spontaneously. Sensation intact bilaterally. Skin: No rashes, fair complexion with freckling Musculoskeletal: No gross deformities. Normal range of motion. Extremities: Warm and well perfused. No clubbing, cyanosis or edema. Intact peripheral pulses bilaterally. Psychiatric: Normal mood and affect [facility] Medical History (Updated 02/09/25 @ 13:03 by CIRA Macdonald) Routine physical examination Depression Type 2 diabetes mellitus with microalbuminuria Encounter for removal of skin lesion Family History Mother HTN (hypertension) Hypercholesteremia Father HTN (hypertension) Diabetes Maternal Grandmother HTN (hypertension) Stomach cancer Colon cancer Paternal Aunt Diabetes Paternal Grandfather Diabetes Paternal Grandfather Stomach cancer Paternal Grandmother Uterine cancer Social History (Updated 02/09/25 @ 11:57 by Beth Ramirez MA) Housing: House Alcohol intake: current Patient Tobacco Use Status: Former Tobacco user Tobacco use type: Cigarette Years Smoked: 10 years e-Cigarette/Vaping Use: Never Used Second Hand Smoke Exposure: No service: No Current occupational status: employed Current occupation: [employer] Current occupational exposures/hazards: No Cognitive needs: No Hearing needs: No Vision needs: No Questionnaire PHQ-9 Over the last 2 weeks, how often have you been bothered by any of the following problems? 1. Little interest or pleasure in doing things: several days 2. Feeling down, depressed, or hopeless: more than half the days 3. Trouble falling or staying asleep, or sleeping too much: more than half the days 4. Feeling tired or having little energy: nearly every day 5. Poor appetite or overeating: more than half the days 6. Feeling bad about yourself - or that you are a failure or have let yourself or your family down: several days 7. Trouble concentrating on things, such as reading the newspaper or watching television: more than half the days 8. Moving or speaking so slowly that other people could have noticed. Or the opposite - being so fidgety or restless that you have been moving around a lot more than usual: more than half the days 9. Thoughts that you would be better off or of hurting yourself in some way: not at all Total score: 15 Depression Screening Interpretation: Positive Depression Screening Follow-up: Declines treatment Depression Screening Done: Yes 87988 - PHQ-9 Billing: Yes Source: Developed by Drs. Ash Crowell, Sherin Keller, Dewayne Palacio and colleagues, with an educational di from [employer]. Thrive Questionnaire Date Thrive assessed: 02/09/25 I am a: Patient What is your living situation today?: I have a steady place to live Within the past 12 months, did the food you bought not last and you didn't have the money to get more?: Never true Within the past 12 months, did you worry whether your food would run out before you got money to buy more?: Never true Do you have trouble paying for medicines?: No Do you have trouble getting transportation to medical appointments?: Yes Do you have trouble paying your heating and electricity bill?: No Do you have trouble taking care of your child, family member or friend?: No Do you have trouble with day-to-day activities such as bathing, preparing meals, shopping, managing finances, etc.?: No Are you currently unemployed and looking for a job?: Yes Are you interested in more education?: No Please select the resources that you would like help with: None Currently or been in a relationship where the following occur: No concerns reported THRIVE Score: 1 AUDIT C Alcohol Use Questionnaire (AUDIT-C) 1. How often do you have a drink containing alcohol?: Monthly or less 2. How many drinks containing alcohol do you have on a typical day when you are drinking?: 1 or 2 3. How often do you have six or more drinks on one occasion?: Never Total Score: 1 JACOB-7 AMB Questionnaire JACOB-7 Date JACOB - 7 assessed: 02/09/25 Feeling nervous, anxious, or on edge: 2 = More than half the days Not being able to stop or control worryin = More than half the days Worrying too much about different things: 2 = More than half the days Trouble relaxin = Several days Being so restless that it is hard to sit still: 1 = Several days Becoming easily annoyed or irritable: 3 = Nearly every day Feeling afraid as if something awful might happen: 2 = More than half the days Total JACOB-7 score (0-4 normal; 5-9 mild; 10-14 moderate; 15-21 severe): 13 Source: Developed by Drs. Ash Crowell, Sherin Keller, Dewayne Palacio and colleagues, with an educational di from [employer]. JACOB-7 Assessment Billing JACOB-7 Assessment Tool: JACOB-7 Assessment 36154 Physical exam (Primary Care) Vital Signs: Last Vital Signs Temp 97.2 F 02/09/25 11:57 Pulse 56 02/09/25 11:57 Resp 12 02/09/25 12:02 BP 110/64 02/09/25 11:57 Pulse Ox 97 02/09/25 11:57 Oxygen Delivery Method Room Air 02/09/25 11:57 BMI result Body Mass Index 28.9 Tobacco/Smoking Status: Tobacco use Status Tobacco use date assessed 02/09/25 02/09/25 12:03 Patient Tobacco Use Status Former Tobacco user 02/09/25 11:57 Tobacco use type Cigarette 02/09/25 11:57 e-Cigarette/Vaping Use Never Used 02/09/25 11:57 PHQ-9: PHQ-9 Score PHQ-9: Total score 15 02/09/25 12:13 Depression Screening Interpretation: Positive Depression Screening Follow-up: Declines treatment Thrive Assessment: Date of Thrive Assessment Date Thrive assessed 02/09/25 02/09/25 12:03 Currently or been in a relationship where the following occur: No concerns reported Results AMB Hemoglobin A1c AMB Hemoglobin A1c 5.6 % Last Edit by Beth Ramirez MA on 02/09/25 12:14 Immunizations Boostrix Tdap 2.5 Lf unit-8 mcg-5 Lf/0.5 mL intramuscular syringe Performing Provider: CIRA Macdonald Performing Location: [facility] Administered by: Beth Ramirez MA on 02/09/25 12:43 Dose Route Admin Location Dispensed Lot Number Expiration Date NDC [facility] 0.5 mL IM Right Deltoid 0.5 mL [id number] 05/26/27 [id number] [employer] Total Dispensed Waste 0.5 mL 0 % VIS Given Date VIS Provided VIS Publication Date 02/09/25 Single Vaccine 21 Eligibility Eligibility Date Funding Source Not [facility] Eligible 02/09/25 Private Results Reviewed Results Reviewed: Laboratory Last Values Hgb A1c (Clinic) 5.6 % (4.0-6.0) 02/09/25 12:07 Coding Level of Care Code Est Pt Prev Care 40-64y(05943) Diagnoses Routine physical examination Z00.00 Type 2 diabetes mellitus with microalbuminuria E11.29; R80.9 Heart murmur R01.1 Depression, unspecified depression type F32.A Depression Type: unspecified Additional Codes JACOB-7 Assessment Billing - JACOB-7 Assessment Tool: JACOB-7 Assessment 71110 ([id number]) PHQ-9 - 32865 - PHQ-9 Billing: Yes ([id number]) Assessment & Plan Assessment & Plan (1) Routine physical examination: Code(s): Z00.00 - Encounter for general adult medical examination without abnormal findings Category: Medical Plan: Patient is seen today for a routine physical. As part of this visit we reviewed the following issues, which are considered and essential part of preventative health in this age group: - Breast Cancer screening - Annual Voicer exam - Screening for colon cancer - Blood pressure screening annually - Cholesterol screening - Osteoporosis prevention including calcium/vitamin D intake, weight bearing exercise & smoking cessation - Nutritional and exercise counseling - Counseling of injury prevention including fire prevention, smoke alarms and seat belt usage - Screening for depression - Education about skin cancer - Recommendations about immunizations - Recommendation of an eye exam - Screening for substance abuse (2) Type 2 diabetes mellitus with microalbuminuria: Code(s): E11.29 - Type 2 diabetes mellitus with other diabetic kidney complication; R80.9 - Proteinuria, unspecified Category: Medical Plan: We reviewed the complications associated with type 2 diabetes. Diabetes is well-controlled. She would like to continue the current dose Mounjaro 2.5 mg weekly. Continue regular exercise and lifestyle modification. Continue annual eye exam. Consider low dose of MEGAN inhibitor or Arb for renal protection if microalbuminuria persists. (3) Heart murmur: Code(s): R01.1 - Cardiac murmur, unspecified Category: Medical Plan: She had an echocardiogram in 2023 which demonstrated mild mitral regurgitation. (4) Depression: Code(s): F32.A - Depression, unspecified Category: Medical Qualifiers: Depression Type: unspecified Qualified Code(s): F32.A - Depression, unspecified Plan: Patient declines further evaluation or treatment at this time. She will monitor symptoms. Plan Follow up in 3 months for type 2 diabetes. Orders: Orders AMB Hemoglobin A1c Today E11.9 - Type 2 diabetes mellitus without complications, Z83.3 - Family history of diabetes mellitus Vitamin D 25-OH (D2 and D3) Today R79.89 - Other specified abnormal findings of blood chemistry Lipid Panel Today E78.5 - Hyperlipidemia, unspecified Microalbumin, Random (w Creat) Today E11.9 - Type 2 diabetes mellitus without complications TDaP Immunization Today Z23 - Encounter for immunization Referrals Dermatology Referral Z12.83 - Encounter for screening for malignant neoplasm of skin Medications: Refilled tirzepatide (Mounjaro) for 4 weeks 2.5 mg (0.5 mL) subcut QWEEK 2 mL 3RF 28 days E11.9 - Type 2 diabetes mellitus without complications
[2025-02-09 11:57] VITALS: BP 110/64; PULSE 56; TEMP 36.2; O2SAT 97; BMI 28.9
[2025-02-09 12:02] VITALS: RESP 12
== END 2025-02-09 12:47 | disposition home or self-care (01) ==
LOC: HO.HMCFM 11:35
PROVIDERS: PCP Family Medicine; Visit Provider Physician Assistant Medical
DX: Z00.00 Encounter for general adult medical examination without abnormal findings (principal); E11.29 Type 2 diabetes mellitus with other diabetic kidney complication; R80.9 Proteinuria, unspecified; R01.1 Cardiac murmur, unspecified; F32.A Depression, unspecified; Z83.3 Family history of diabetes mellitus; Z23 Encounter for immunization

== ENCOUNTER 2025-02-12 07:48 | Outpatient (REF) | payer OTHER, SELFPAY ==
[2025-02-12 11:48] LABS: Appearance Urine Clear; Glucose Urine UA Negative (Negative); PH 8.0 (5.0-9.0); Specific Gravity - Urine <= 1.005 (1.005-1.025); UMIC TRIGGER UA YES
[2025-02-12 12:26] LABS: Cholesterol 197 mg/dL (<200); HDL Cholesterol 52 mg/dL (>40); Triglycerides 126 mg/dL (<150)
[2025-02-12 12:31] LABS: Microalbum/Creatinine Ratio Ur 59.3 ug/mg cr (<30)
[2025-02-13 07:44] LABS: Follicle Stimulating Hormone 27.6 mIU/mL
[2025-02-17 16:33] LABS: Vitamin D 25-OH, D2 <4 ng/mL; Vitamin D 25-OH, D3 90 ng/mL; Vitamin D 25-OH, Total 90 ng/mL (30-100)
== END 2025-02-12 07:49 | disposition home or self-care (01) ==
LOC: HO.WFDLDS 07:48
PROVIDERS: Family Medicine; Referring Provider Obstetrics & Gynecology; Visit Provider Physician Assistant Medical
DX: E11.9 Type 2 diabetes mellitus without complications (principal); R79.89 Other specified abnormal findings of blood chemistry; E78.5 Hyperlipidemia, unspecified; R23.2 Flushing
CPT/HCPCS: 36415; 80061; 81001; 82043; 82306; 82570; 83001; 83002

== ENCOUNTER 2025-02-16 07:02 | Outpatient (RCR) | payer OTHER, SELFPAY ==
--- NOTE | 2025-01-12 10:38 | MHC.PT.EP ---
[facility] [place] [facility] [place] [facility] [place] Office [address] [phone] F: [phone] F: [phone] F: [phone] F: [phone] Physical Therapy Plan of Care Date of Evaluation: 01/12/25 Date of Surgery: Diagnosis: unilateral primary OA L knee Assessment: 44 y/o female referred to PT with unilateral knee OA L knee resulting in pain and difficulty with stairs, squatting, exercise routine (lunges, squats, hip thrusts) and running. Examination shows mild swelling B knees, lateral tilt patella, decreased tibial IR, decreased hip strength, decreased quad/calf length, and impaired squat/ lunge mechanics. S/s consistent with patellofemoral arthritis and ? meniscal involvement. Recommend PT 1x/week for 8 weeks to address impairments, implement HEP, and optimize functional mobility. Frequency and Duration: The patient will be seen 1x/week for 8 weeks Short Term Goals: 4 weeks I with HEP pt will demonstrate 0* knee extension Custodial Goals: 8 weeks I with HEP and self management of sx Pt marcelo be able to perform mid-range squats with pain < 3/10 Pt will be able to ascend/ descend stairs with pain <3/10 in step through pattern Treatment Plan: Modalities to reduce pain, spasms and effusion. Manual therapy to restore motion and function. Therapeutic exercise to improve strength and flexibility. Neuromuscular re-education for posture and balance. Therapeutic activities to return to functional activities of daily living. Electronically signed by: Kylie Ivey PT Please sign and return to therapist. Thank you for your referral.
--- NOTE | 2025-03-23 13:05 | MHC.PT.DC ---
[facility] [place] Office [place] Office [place] Office [address] Justin Prescott [address] [facility] [phone] F: [phone] F: [phone] F: [phone] F: [phone] Physical Therapy Discharge Report Diagnosis: unilateral primary OA L knee Date of Surgery: Date of Evaluation: 01/12/25 Date of Discharge: 03/23/25 Treatments to Date: 5 Cancellations to Date: 1 No Shows to Date: 0 Discharge Status: Improved Function Independent with HEP Discharge Summary: Overall reports improvements in L knee pain with less 'creaking' and 'clunking' although it still happens with deeper squats and certain movements. Reviewed HEP and updated to more dynamic exercises. Reviewed HEP and at this time, pt feels ready for d/c. Electronically signed by: Kylie Ivey PT Please sign and return to therapist. Thank you for your referral.
== END 2025-03-23 13:05 | disposition home or self-care (01) ==
LOC: HO.PT 07:02
PROVIDERS: PCP Family Medicine; Visit Provider Orthopaedic Surgery
DX: M17.12 Unilateral primary osteoarthritis, left knee (principal)
CPT/HCPCS: 97110; 97161; 97530

== ENCOUNTER 2025-03-03 07:40 | Outpatient (AMB) | payer OTHER, SELFPAY ==
--- NOTE | 2025-03-03 07:40 | A.OFFVIS_ITS ---
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 no pelvic pain abnormal uterine bl FSH/LH 27.6/11.7 on Mirena IUD Pelvic ultrasound showed the following: Uterus: The uterus is anteversion flexion and measures 9 x 7 x 6 cm. Volume: 196 cc. The double wall endometrial thickness is not identified. There is an intrauterine contraceptive device noted fully evaluated... There is a 4.2 x 3.8 x 4.0 cm heterogeneous soft tissue lesion centered in the fundus. There is a 4.8 x 3.7 x 4.9 cm heterogeneous soft tissue lesion likely subserosal right lateral body/cervix junction. Adnexa: Both ovaries are visualized. There is normal color flow to the adnexa. There is no ovarian torsion. There is no pelvic ascites or fluid collection. . Right ovary measures 3 x 1 x 2 cm. Volume: 4 cc. Left ovary measures 4 x 2 x 3 cm. Volume: 19 cc. 1.9 cm dominant follicle. Last pelvic ultrasound done in 04/29 showed ...The uterus is smooth in contour and has normal myometrial echogenicity. Right subserosal 4.6 cm fibroid. Right uterine body intramural 3.5 cm fibroid.... Last mammogram was negative in 01/27, the patient is schedule for next mammogram in 04/30 [facility] Medical History (Updated 03/03/25 @ 08:09 by Gm Benz MD) Hyperlipidemia Routine physical examination Depression Type 2 diabetes mellitus with microalbuminuria Encounter for removal of skin lesion Family History Mother HTN (hypertension) Hypercholesteremia Father HTN (hypertension) Diabetes Maternal Grandmother HTN (hypertension) Stomach cancer Colon cancer Paternal Aunt Diabetes Paternal Grandfather Diabetes Paternal Grandfather Stomach cancer Paternal Grandmother Uterine cancer Social History (Updated 02/09/25 @ 11:57 by Beth Ramirez MA) Housing: House Alcohol intake: current Patient Tobacco Use Status: Former Tobacco user Tobacco use type: Cigarette Years Smoked: 10 years e-Cigarette/Vaping Use: Never Used Second Hand Smoke Exposure: No service: No Current occupational status: employed Current occupation: [employer] Current occupational exposures/hazards: No Cognitive needs: No Hearing needs: No Vision needs: No Telehealth Telehealth Telehealth Platform: Telephone Location of provider rendering services: practice address Location of patient: address on file Patient Identification confirmed using: Name, : Yes Telehealth method: video Patient verbally consented to treatment: Yes Patient verbally consented to billing insurance company: Yes Patient informed of any privacy concerns related to visit: Yes Minutes spent on Phone/Video with Pt.: 9 Assessment & Plan Assessment & Plan (1) Uterine myoma: Comment: Mirena IUD Code(s): D25.9 - Leiomyoma of uterus, unspecified Category: Medical Plan: Discussed with the patient the findings on pelvic ultrasound & the risk of myosarcoma; in addition reviewed with the patient that malignancy and pre malignancy cannot be ruled out without hysterectomy for pathological evaluation ; furthermore, explained to the patient the limitation of pelvic ultrasound and endometrial biopsy in the setting. Discussed with the patient the options of treatment including expectant management versus hysterectomy; the pros and cons, risks benefits of each approach were discussed with the patient including the fact that in cases of myosarcoma, surgical treatment can lead to early diagnosis and positively affects the prognosis; after further discussion, the patient decided to proceed with expectant management. Will repeat pelvic ultrasound periodically. Instructions given to patient to call in case any of the following occurs: pressure symptoms, abnormal uterine bleeding, pelvic pain; and to schedule a notmonths pelvic ultrasound (order placed) and a follow-up appointment . All questions answered, the patient verbalized understanding and agreed with the plan . (2) Hot flashes: Comment: With Mirena IUD Code(s): R23.2 - [place] Category: Medical Plan: discussed with the patient the level of FSH LH even on Mirena IUD and hot flashes probably caused perimenopausal symptoms options of treatment discussed with the patient including hormonal and nonhormonal treatment. The patient was recently started on Wellbutrin will call back if symptoms are not better (3) Atrophic vaginitis: Code(s): N95.2 - Postmenopausal atrophic vaginitis Category: Medical Plan: will prescribe a short term Estrace vaginal cream trial of 1 month once q.h.s. for a week then 3 times a week for 3 weeks. Prescription sent to the pharmacy. I spent a total of 20 minutes reviewing the chart, talking to the patient via video and documenting in the medical record. Orders: Orders US pelvic and transvaginal 9 Months D25.9 - Leiomyoma of uterus, unspecified Medications: New estradiol 0.01%(0.1mg/gram) (Estrace) Start with half an applicator 0.5 g intravaginal daily for the 1st week then 3 times a week 0.5 appful vaginal 3XW 42.5 grams 0RF 4 weeks Coding Level of Care Code Tele Est Pt Level 3 (91926) Diagnoses Uterine myoma D25.9 Hot flashes R23.2 Atrophic vaginitis N95.2
== END 2025-03-03 08:18 | disposition home or self-care (01) ==
LOC: HO.HWS 07:40
PROVIDERS: PCP Family Medicine; Visit Provider Obstetrics & Gynecology
DX: D25.9 Leiomyoma of uterus, unspecified (principal); R23.2 Flushing; N95.2 Postmenopausal atrophic vaginitis
CPT/HCPCS: 98005

== ENCOUNTER 2025-04-11 08:30 | Outpatient (REF) | payer OTHER, SELFPAY ==
--- NOTE | ~2025-04-11 | MM_ITS ---
EXAMINATION: MM SCREENING DIGITAL BREAST TOMOSYNTHESIS, BILATERAL CLINICAL INFORMATION: Screening. Asymptomatic. COMPARISON: Mammography: Comparison is made with available priors TECHNIQUE: Digital breast mammography with tomosynthesis is performed in both the craniocaudal and mediolateral oblique views along with computer-aided detection (CAD). FINDINGS: The breasts are heterogeneously dense, which may obscure small masses (ACR BI-RADS breast composition Category c). There are no significant masses, abnormal calcifications, or other abnormalities. MM/MM tomosynthesis screening BI IMPRESSION: No mammographic evidence of malignancy. ASSESSMENT: BI-RADS BI-RADS 1 - Negative RECOMMENDATION: Routine annual mammography screening. 1 year F/U This examination should not preclude the clinical evaluation of a suspicious palpable abnormality. This patient's information was entered into a reminder system with a target due date for their next mammogram. Electronically signed by: Emmanuelle Pastor DO 04/14/2025 02:13 PM EDT
--- OUTSIDE RECORDS SUMMARY | 2025-04-11 08:33 | XMS_ITS | Patient Health Record ---
[facility] Address [address] [place] [address] Support Name Relationship Address Phone Michele Chiara Guarantor Unknown [phone] Reason For Referral No Information Problems Problem Type SNOMED Code ICD Code Onset Dates Problem Status W/U Status Risk Notes Problem Mild major depression, single episode ([id number]) Current mild episode of major depressive disorder without prior episode (F32.0) Active confirmed Plan Of Treatment No Information Insurance Providers Payer Name Payer Address Payer Phone Subscriber Number Group Number Insured Name Patient Relationship to Insured Coverage Start Date Coverage End Date ARUNA CARRENO [id number] ERICKA SOSA [id number] Chiara Bautista Self - patient is the insured
== END 2025-04-11 08:31 | disposition home or self-care (01) ==
LOC: HO.MAMMO 08:30
PROVIDERS: PCP Family Medicine; Visit Provider Family Medicine
DX: Z12.31 Encounter for screening mammogram for malignant neoplasm of breast (principal)
CPT/HCPCS: 77063; 77067

== ENCOUNTER → 2025-04-11 08:45 | Outpatient (BNV) | payer OTHER, SELFPAY | PROVIDERS: PCP Family Medicine; Visit Provider Internal Medicine | DX: Z12.31 Encounter for screening mammogram for malignant neoplasm of breast (principal) | CPT/HCPCS: 77063; 77067 ==

== ENCOUNTER 2025-05-28 10:39 | Outpatient (AMB) | payer OTHER, SELFPAY ==
--- NOTE | 2025-05-28 11:38 | A.OFFPC_ITS ---
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 Allergies No Known Allergies Allergy (Verified 05/28/25 11:39) Medication List - Last Reconciled 05/28/25 by Ariel Meier MD ashluisdha root extract mg PO bisacodyl (Dulcolax (bisacodyl)) 10 mg (2 x 5 mg) PO BEDTIME 2 days bupropion HCl XL 150 mg PO QAM 90 days cholecalciferol (vitamin D3) 250 mcg PO DAILY estradiol 0.01%(0.1mg/gram) (Estrace) 0.5 appful vaginal 3XW 4 weeks fluticasone propionate 50 mcg/actuation (Flonase Allergy Relief) 1 spray intranasal BID ipratropium bromide 2 sprays intranasal BID multivitamin 1 tab PO DAILY omega 7-oxe-hpr-fish oil 1,200 (144-216) mg (Fish Oil) caps PO peg 3350-electrolytes 236-22.74-6.74 -5.86 gram (Golytely) 240 mL PO Q10M 1 day tirzepatide 5 mg (0.5 mL) subcut QWEEK 28 days Tobacco use date assessed: 02/09/25 Dental Screening Dental Screen Date: 02/09/25 HPI Type II diabetes HPI Details 45 y/o female presents to f/u diabetes. A1c today 5.4%. She is on mounjaro 2.5mg. She notes she feels her current dose has not been doing much for her weight. [facility] Medical History (Updated 05/28/25 @ 12:00 by Merrick Tsai) Hyperlipidemia Routine physical examination Depression Type 2 diabetes mellitus with microalbuminuria Encounter for removal of skin lesion Family History Mother HTN (hypertension) Hypercholesteremia Father HTN (hypertension) Diabetes Maternal Grandmother HTN (hypertension) Stomach cancer Colon cancer Paternal Aunt Diabetes Paternal Grandfather Diabetes Paternal Grandfather Stomach cancer Paternal Grandmother Uterine cancer Social History (Updated 02/09/25 @ 11:57 by Beth Ramirez MA) Housing: House Alcohol intake: current Patient Tobacco Use Status: Former Tobacco user Tobacco use type: Cigarette Years Smoked: 10 years e-Cigarette/Vaping Use: Never Used Second Hand Smoke Exposure: No service: No Current occupational status: employed Current occupation: [employer] Current occupational exposures/hazards: No Cognitive needs: No Hearing needs: No Vision needs: No Questionnaire Thrive Questionnaire Date Thrive assessed: 02/09/25 I am a: Patient What is your living situation today?: I have a steady place to live Within the past 12 months, did the food you bought not last and you didn't have the money to get more?: Never true Within the past 12 months, did you worry whether your food would run out before you got money to buy more?: Never true Do you have trouble paying for medicines?: No Do you have trouble getting transportation to medical appointments?: Yes Do you have trouble paying your heating and electricity bill?: No Do you have trouble taking care of your child, family member or friend?: No Do you have trouble with day-to-day activities such as bathing, preparing meals, shopping, managing finances, etc.?: No Are you currently unemployed and looking for a job?: Yes Are you interested in more education?: No Please select the resources that you would like help with: None Currently or been in a relationship where the following occur: No concerns reported THRIVE Score: 1 JACOB-7 AMB Questionnaire JACOB-7 Date JACOB - 7 assessed: 02/09/25 Source: Developed by Drs. Ash Crowell, Sherin Keller, Dewayne Palacio and colleagues, with an educational di from [employer]. Review of Systems Const Denies chills, Denies fatigue, Denies fever(s), Denies headache(s) and Denies weakness ENT Denies dizziness and Denies headache(s) Card Denies dyspnea Resp Denies cough, Denies dyspnea, Denies wheezing and Denies other (shortness of breath) Musc Denies numbness and Denies tingling Neuro Denies dizziness, Denies headache(s), Denies numbness, Denies tingling and Denies weakness Psych Denies anxiety and Denies depression Endo Denies fatigue Aller/Immun Denies wheezing Physical exam (Primary Care) Vital Signs: Last Vital Signs Temp 97.8 F 05/28/25 11:42 Pulse 68 05/28/25 11:42 Resp 16 05/28/25 11:42 BP 120/70 05/28/25 11:42 Pulse Ox 98 05/28/25 11:42 Oxygen Delivery Method Room Air 05/28/25 11:42 BMI result Body Mass Index 29.9 Tobacco/Smoking Status: Tobacco use Status Tobacco use date assessed 02/09/25 05/28/25 11:48 Patient Tobacco Use Status Former Tobacco user 05/28/25 11:48 Tobacco use type Cigarette 05/28/25 11:48 e-Cigarette/Vaping Use Never Used 05/28/25 11:48 Thrive Assessment: Date of Thrive Assessment Date Thrive assessed 02/09/25 05/28/25 11:48 Currently or been in a relationship where the following occur: No concerns reported Const General: well developed; No acute distress Nutritional Appearance: well nourished and obese Orientation/consciousness: patient oriented x3 HENMT Head: Yes normocephalic and Yes atraumatic Eyes General: appearance normal, both eyes and all related structures Pupils: Equal, round and reactive pupils present EOM: EOMs intact bilaterally Resp Effort & Inspection: normal respiratory effort Auscultation: clear to auscultation bilaterally Cardio Rate: regular rate Rhythm: regular rhythm Heart sounds: S1 normal heart sound present, S2 normal heart sound present, no gallops, no murmurs and no rubs Neuro General: patient oriented x3 and gait normal Cranial nerves: Yes Equal, round and reactive pupils present Psych Affect: normal affect Coding Level of Care Code Est Pt Level 3 (72701) Diagnoses Diabetes E11.9 Overweight E66.3 Hyperlipidemia E78.5 Assessment & Plan Assessment & Plan (1) Diabetes: Code(s): E11.9 - Type 2 diabetes mellitus without complications Category: Medical Plan: A1c 5.4%. Good control. Goal is less than 7% She is taking Mounjaro without difficulty though she notes it has not been helping as much with weight loss lately. Will increase from 2.5 mg weekly to 5 mg weekly (2) Overweight: Code(s): E66.3 - Overweight Category: Medical Plan: As above, increasing Mounjaro (3) Hyperlipidemia: Code(s): E78.5 - Hyperlipidemia, unspecified Category: Medical Plan: Patient has stopped taking rosuvastatin because she was told there is an interaction with magnesium. No significant interaction that contraindicate its using rosuvastatin Will recheck lipids Medications: Changed From tirzepatide (Mounjaro) for 4 weeks 2.5 mg (0.5 mL) subcut QWEEK 28 days 2 mL 3RF E11.9 - Type 2 diabetes mellitus without complications To tirzepatide for 4 weeks 5 mg (0.5 mL) subcut QWEEK 2 mL 3RF 28 days E11.9 - Type 2 diabetes mellitus without complications
[2025-05-28 11:42] VITALS: BP 120/70; PULSE 68; RESP 16; TEMP 36.6; O2SAT 98; BMI 29.9
== END 2025-05-28 12:01 | disposition home or self-care (01) ==
LOC: HO.HMCFM 10:39
PROVIDERS: PCP Family Medicine; Visit Provider Family Medicine
DX: E11.9 Type 2 diabetes mellitus without complications (principal); E66.3 Overweight; E78.5 Hyperlipidemia, unspecified